=== PATIENT | female | born 1955 | race Caucasian/White ===

== ENCOUNTER 2018-07-09 09:31 | Day surgery (SDC) | payer OTHER ==
[~2018-07-09] VITALS: Ht 165.1 cm; Wt 66.0 kg
[~2018-07-09 09:31] MED LIST: ALBU90OI; ALBU90OI INH; CYCL10 PO; Dicyclomine HCl20 MG PO; GABA600; HYDGUAL120 PO; LANS15EC PO; MONT10T PO; NAPR500 PO; NICO2 PO; PROG100 PO; Promethegan12.5 MG PR; QVAR REDIHALE10.6 GM INH; SULTRISS PO; TRIAOI; TRIM250 PO
--- NOTE | 2018-07-09 10:34 | NUR ---
07/09/18 1034 Shweta Yee FIRST IV ATTEMPT BY RXS IN RIGHT FOREARM INFILTRATED SECOND ATTEMPT IN R HAND BY RXS THIRD ATTEMPT IN R HAND BY FLL FOURTH ATTEMPT IN R AC BY FLL FIFTH ATTEMPT IN L AC BY DFT SUCCESSFUL PT VERY UNDERSTANDING
--- NOTE | 2018-07-09 11:16 | NUR ---
07/09/18 1116 Ita Castellanos FIRST TWO DOSES OF PROPOFOL IN AND NO RESPONSE TO SEDATION AND PATIENT C/O BURNING IN LEFT UPPER ARM. THE SEDATION WAS STOPPED AND CALLED IN HELP FROM CHARGE NURSE TO RESTART IV PATIENT DIFFICULT IV START. CHARGE NURSE MAIK FARRELL ATTEMPTED IV IN RIGHT HAND THAT WAS NOT SUCCESSFUL. IV IN RIGHT LOWER LEG START BY MYSELF. IV RUNNING SMOOTHLY. PATIENT REPOSITIONED AND SEDATION RESTARTED WITH RESPONSE TO PROPOFOL AND NO BURNING . CASE PROCEEDED
--- NOTE | 2018-07-09 12:01 | NUR ---
07/09/18 1201 Ita Castellanos SPOKE WITH PATIENT ABOUT THE PAIN IN HER LEFT ARM WHERE THE IV INFILTRATION HAPPENED. SHE RATES THE PAIN IN HER ARM NOW 2/10. I EXPLAINED TO HER TO CALL IF ANY INCREASE IN PROBLEMS. ADVISED HER SHE COULD USE WARM COMPRESS TO THE AREA TO HELP WITH ABSORPTION OF THE FLUID THAT WAS DISPLACED INTO THE TISSUE. SHE VERBALIZED UNDERSTANDING OF THIS AND CONFIRMED SHE WILL CALL IF ANY PROBLEMS OR CONCERNS
== END 2018-07-09 11:53 | disposition home or self-care (01) ==
LOC: ORSCSDS 09:31
PROVIDERS: Student in an Organized Health Care Education/Training Program
PROC: 0DJD8ZZ Inspection of Lower Intestinal Tract, Via Natural or Artificial Opening Endoscopic (ICD-10-PCS; principal; 2018-07-09 11:00)
DX: Z12.11 Encounter for screening for malignant neoplasm of colon (principal); K64.4 Residual hemorrhoidal skin tags; K64.8 Other hemorrhoids; J45.909 Unspecified asthma, uncomplicated; M79.7 Fibromyalgia; B18.2 Chronic viral hepatitis C; Z87.891 Personal history of nicotine dependence; Z79.899 Other long term (current) drug therapy
CPT/HCPCS: J2704; J7120

== ENCOUNTER 2018-08-15 16:21 | Emergency (ER) | payer OTHER ==
[~2018-08-15] VITALS: Ht 165.1 cm; Wt 68.0 kg
[~2018-08-15 16:21] MED LIST changes: +GABA100 PO; -GABA600
[2018-08-15] MEDS ORDERED: LAMO100 PO (16:42)
[2018-08-15] MEDS ORDERED: Chantix0.5 MG PO (16:43)
[2018-08-15] MEDS ORDERED: CYCL10 PO (17:03)
[2018-08-15] MEDS ORDERED: ONDA4ODT MM (17:03)
[2018-08-15] MEDS ORDERED: Percocet 5-3251 EACH PO (17:03)
== END 2018-08-15 17:09 | disposition home or self-care (01) ==
LOC: ER 16:21
DX: S16.1XXA Strain of muscle, fascia and tendon at neck level, initial encounter (principal); S29.012A Strain of muscle and tendon of back wall of thorax, initial encounter; W11.XXXA Fall on and from ladder, initial encounter; Z88.5 Allergy status to narcotic agent; Z79.899 Other long term (current) drug therapy; Z87.891 Personal history of nicotine dependence
CPT/HCPCS: 72040; 72070; 99283-25

== ENCOUNTER → 2018-09-30 | Outpatient (CLI) | payer OTHER ==
[~2018-09-30] MED LIST changes: +Chantix0.5 MG PO; +LAMO100 PO; +ONDA4ODT MM; +Percocet 5-3251 EACH PO
[2018-09-30 18:16] LABS: Source, Urine Clean Catch
[2018-09-30 18:54] LABS: Appearance, Urine Clear (Clear); Bilirubin, Urine Neg (Neg); Blood, Urine Neg (Neg); Color, Urine Yellow (P-Yellow); Glucose Qualitative, Urine Neg (Neg); Ketones, Urine Neg (Neg); Leukocyte Esterase, Urine Neg (Neg); Nitrite, Urine Neg (Neg); Protein, Urine Neg (Neg); Specific Gravity, Urine 1.005 (1.003-1.022); Urobilinogen, Urine NORM (Normal); pH, Urine 6.5 (5.0-8.0)
== END | disposition home or self-care (01) ==
LOC: LAB SHORT 15:18 → LAB 15:18
PROVIDERS: Family Medicine
DX: R35.0 Frequency of micturition (principal)
CPT/HCPCS: 81003

== ENCOUNTER 2020-05-09 15:10 | Emergency (ER) | payer MEDICARE | END 2020-05-09 16:08 | disposition left against medical advice (07) | LOC: ER 15:10 | DX: Z53.21 Procedure and treatment not carried out due to patient leaving prior to being seen by health care provider (principal) ==

== ENCOUNTER → 2020-11-04 | Outpatient (CLI) | payer MEDICARE | LOC: LAB 13:00 → LAB SHORT 13:00 | DX: N39.0 Urinary tract infection, site not specified (principal) | CPT/HCPCS: 87077; 87086; 87186 ==

== ENCOUNTER → 2021-06-01 | Outpatient (CLI) | payer MEDICARE ==
[2021-06-01 16:21] LABS: U Amphetamine Screen Not Detected; U Barbituate Screen Not Detected; U Benzodiazapine Screen Not Detected; U Buprenorphine Screen Not Detected; U Cannabinoids Screen Not Detected; U Cocaine Screen Not Detected; U Methadone Screen Not Detected; U Methamphetamine Screen Not Detected; U Opiates Screen Not Detected; U Oxycodone Screen DETECTED; U Phencyclidine Screen Not Detected; U Propoxyphene Screen Not Detected
== END | disposition home or self-care (01) ==
LOC: LAB 15:06 → LAB SHORT 15:06
PROVIDERS: Family Medicine
DX: Z51.81 Encounter for therapeutic drug level monitoring (principal); Z79.891 Long term (current) use of opiate analgesic

== ENCOUNTER → 2021-08-30 | Outpatient (CLI) | payer MEDICARE | END | disposition home or self-care (01) | LOC: LAB SHORT 14:00 → LAB 14:00 | DX: R30.0 Dysuria (principal) | CPT/HCPCS: 87077; 87086; 87186 ==

== ENCOUNTER → 2021-09-19 | Outpatient (CLI) | payer MEDICARE ==
[2021-09-19 16:49] LABS: U Amphetamine Screen Not Detected; U Barbituate Screen Not Detected; U Benzodiazapine Screen Not Detected; U Buprenorphine Screen Not Detected; U Cannabinoids Screen Not Detected; U Cocaine Screen Not Detected; U Methadone Screen Not Detected; U Methamphetamine Screen Not Detected; U Opiates Screen DETECTED; U Oxycodone Screen Not Detected; U Phencyclidine Screen Not Detected; U Propoxyphene Screen Not Detected
== END ==
LOC: LAB SHORT 14:10
PROVIDERS: Family Medicine
DX: Z79.891 Long term (current) use of opiate analgesic (principal)

== ENCOUNTER → 2021-09-24 | Outpatient (CLI) | payer MEDICARE | LOC: LAB SHORT 13:30 → LAB 13:30 | DX: N39.0 Urinary tract infection, site not specified (principal) | CPT/HCPCS: 87086 ==

== ENCOUNTER 2022-10-14 05:42 | Emergency (ER) | payer MEDICARE ==
[~2022-10-14] VITALS: Ht 165.1 cm; Wt 68.0 kg
[2022-10-14 07:30] VITALS: BP 115/78
[2022-10-14] MEDS ORDERED: NAPR500 PO (08:05)
[2022-10-14] MEDS ORDERED: CYCL10 PO (08:05)
== END 2022-10-14 08:18 | disposition home or self-care (01) ==
LOC: ER 05:42
DX: M26.622 Arthralgia of left temporomandibular joint (principal); Z79.899 Other long term (current) drug therapy; Z87.891 Personal history of nicotine dependence
CPT/HCPCS: A9270; J1885

== ENCOUNTER 2024-07-31 17:18 | Emergency (ER) | payer OTHER ==
[~2024-07-31] VITALS: Ht 162.6 cm; Wt 86.2 kg
[2024-07-31] MEDS ORDERED: FentaNYL Citrate 50 MCG/ML 2 ML Injection IV ONE (17:50)
[2024-07-31 18:12] LABS: BASOPHILS ABSOLUTE AUTO 0.02 K/mm3 (0.00-0.23); BASOPHILS PERCENT AUTO 0 % (0-2); EOSINOPHILS ABSOLUTE AUTO 0.08 K/mm3 (0.00-0.68); EOSINOPHILS PERCENT AUTO 1 % (0-6); Hematocrit 38.8 % (33.0-51.0); Hemoglobin 13.4 g/dL (11.5-16.0); IMMATURE GRAN ABSOLUTE AUTO 0.08 K/mm3 (0.00-0.10); IMMATURE GRAN PERCENT AUTO 1 % (0-1); LYMPHOCYTES ABSOLUTE AUTO 1.25 K/mm3 (0.84-5.20); LYMPHOCYTES PERCENT AUTO 10 % (21-46); MONOCYTES ABSOLUTE AUTO 0.77 K/mm3 (0.16-1.47); MONOCYTES PERCENT AUTO 6 % (4-13); Mean Corpuscular HGB 33.4 pg (26.0-34.0); Mean Corpuscular HGB Conc 34.5 g/dL (31.5-36.5); Mean Corpuscular Volume 97 fL (80-100); Mean Platelet Volume 9.7 fL (9.1-12.4); NEUTROPHILS ABSOLUTE AUTO 10.07 K/mm3 (1.96-9.15); NEUTROPHILS PERCENT AUTO 82 % (41-73); Platelet Count 243 K/mm3 (150-400); RDW Coefficient Variation 12.3 % (11.7-14.2); Red Blood Cell Count 4.01 M/mm3 (3.80-5.20); White Blood Cell Count 12.27 K/mm3 (4.00-11.30)
[2024-07-31 18:48] LABS: Albumin, Blood 3.8 g/dL (3.4-5.0); Albumin/Globulin Ratio 1.2 (0.8-1.8); Bilirubin, Total 0.2 mg/dL (0.1-1.0); Bun/Creatinine Ratio 20.6 (12.0-20.0); Calcium, Blood 9.1 mg/dL (8.5-10.1); Creatinine, Blood 0.87 mg/dL (0.40-1.00); Globulin, Blood 3.2 g/dL (2.2-4.0); Potassium, Blood 3.9 mmol/L (3.5-5.5)
[2024-07-31] MEDS ORDERED: HYDROmorphone HCl/Pf 1MG SYR IV ONE (19:20)
[2024-07-31 20:30] VITALS: BP 138/66
[2024-07-31] MEDS ORDERED: RX Prepack 6 Tabs Oxycodone 5mg UD ONE (20:30)
== END 2024-07-31 20:47 | disposition home or self-care (01) ==
LOC: ER 17:18
PROVIDERS: Emergency Medicine
DX: S16.1XXA Strain of muscle, fascia and tendon at neck level, initial encounter (principal); M54.50 Low back pain, unspecified; Z79.899 Other long term (current) drug therapy; M19.90 Unspecified osteoarthritis, unspecified site; Z87.891 Personal history of nicotine dependence; V49.9XXA Car occupant (driver) (passenger) injured in unspecified traffic accident, initial encounter
CPT/HCPCS: 70450; 71260; 72125; 73110; 74177; 80053; 85025; 93005; 93010; 96374-59; 99285-25; A9270; J1171; J3010; Q9967